=== PATIENT | male | born 1960 | race Caucasian/White ===

== ENCOUNTER 2021-11-11 13:21 | Inpatient (IN) | payer OTHER ==
[~2021-11-11] VITALS: Ht 180.3 cm; Wt 102.8 kg
[2021-11-11 15:12] LABS: Albumin 2.7 g/dL (3.4-5.0); Calcium 8.2 mg/dL (8.5-10.1); Magnesium 2.3 mg/dL (1.6-2.6); Potassium 4.1 mmol/L (3.5-5.1)
[2021-11-11 15:18] LABS: Urine Bacteria NONE SEEN /hpf (None Seen); Urine Blood 1+ /uL (Negative); Urine Hyaline Cast FEW /lpf (0 - 2); Urine Mucus FEW (None Seen); Urine WBC 1 /hpf (0 - 3)
[2021-11-11 15:18] LABS: BUN/Creatinine Ratio 12.4; Bilirubin, Total 0.9 mg/dL (0.2-1.0); Total Protein 7.2 g/dL (6.4-8.2)
[2021-11-11 15:20] LABS: Basophils # (auto) 0 10 ^3/uL (0-0.2); Basophils % (auto) 0.5 % (0.0-2.0); Eosinophils # (auto) 0.1 10 ^3/uL (0-0.8); Eosinophils % (auto) 1.1 % (0.0-7.0); Hematocrit 34.1 % (41.0-53.0); Hemoglobin 11.6 g/dL (13.5-17.5); Lymphocytes # (auto) 0.9 10 ^3/uL (0.4-5.4); Mean Corpuscular Hemoglobin 25.3 pg (28.0-32.0); Mean Corpuscular Hgb Conc. 33.9 g/dL (32.0-36.0); Mean Corpuscular Volume 74.6 fL (80.0-100.0); Monocytes # (auto) 0.9 10 ^3/uL (0-1.3); Monocytes % (auto) 9.8 % (0.0-12.0); Neutrophils # (auto) 7.3 10 ^3/uL (1.6-8.6); Neutrophils % (auto) 78.6 % (37.0-80.0); Red Blood Cells 4.57 10^6/uL (4.5-5.90); White Blood Cell 9.3 10^3/uL (4.4-10.8)
[2021-11-11] MEDS ORDERED: KETOROLAC TROMETH 30 MG/ML 1ML VIAL IV ONE (15:30)
[2021-11-11] MEDS ORDERED: LABETALOL HCL 5 MG/ML 4ML SYRINGE IV ONE (15:30)
[2021-11-11] MEDS ORDERED: METOCLOPRAMIDE HCL 5MG/ml INJ 2ml VIAL IV ONE (15:30)
[2021-11-11] MEDS ORDERED: ACETAMINOPHEN 325 MG TAB PO PRN (18:15)
[2021-11-11] MEDS ORDERED: MORPHINE SULFATE INJECTION 2 MG/ML SYRG IV PRN (18:15)
[2021-11-11] MEDS ORDERED: MORPHINE SULFATE 4 MG/ML SYR/VIAL IV PRN (18:15)
[2021-11-11] MEDS ORDERED: NITROGLYCERIN 0.4 MG SL TAB SL PRN (18:15)
[2021-11-11] MEDS ORDERED: HEPARIN DRIP/D5W 100UNITS/ML 250 ML IV SCH (19:15)
[2021-11-11] MEDS ORDERED: HEPARIN SODIUM (PORCINE) 5000 UNITS/ML 1ML VIAL IV ONE (19:15)
[2021-11-11 20:32] LABS: INR 1.3 (0.9-1.15); Partial Thromboplastin Time 25.3 sec (23.6-33.0)
[2021-11-11 21:26] VITALS: BP 127/55
[2021-11-11 21:30] VITALS: BP 127/55
[2021-11-11 23:23] LABS: INR 1.3 (0.9-1.15); Partial Thromboplastin Time 30.2 sec (23.6-33.0)
[2021-11-12] MEDS ORDERED: LISI-275 PO (00:24)
[2021-11-12] MEDS ORDERED: TICA90TA PO (00:24)
[2021-11-12] MEDS ORDERED: MET25T PO (00:24)
[2021-11-12 05:00] VITALS: BP 139/75
[2021-11-12 06:08] LABS: Basophils # (auto) 0 10 ^3/uL (0-0.2); Basophils % (auto) 0.6 % (0.0-2.0); Eosinophils # (auto) 0.1 10 ^3/uL (0-0.8); Hematocrit 29.8 % (41.0-53.0); Hemoglobin 10.1 g/dL (13.5-17.5); Lymphocytes # (auto) 0.9 10 ^3/uL (0.4-5.4); Monocytes # (auto) 0.8 10 ^3/uL (0-1.3); Neutrophils # (auto) 5.3 10 ^3/uL (1.6-8.6); White Blood Cell 7.1 10^3/uL (4.4-10.8)
[2021-11-12 06:10] LABS: Eosinophils % (auto) 1.5 % (0.0-7.0); Lymphocytes % (auto) 12.7 % (10.0-50.0); Mean Corpuscular Hemoglobin 25.4 pg (28.0-32.0); Mean Corpuscular Hgb Conc. 33.8 g/dL (32.0-36.0); Mean Corpuscular Volume 75.1 fL (80.0-100.0); Monocytes % (auto) 11.3 % (0.0-12.0); Neutrophils % (auto) 73.9 % (37.0-80.0); Red Blood Cells 3.97 10^6/uL (4.5-5.90); Red Cell Distribution Width 15.8 % (11.8-14.3)
[2021-11-12 06:35] LABS: Albumin 2.4 g/dL (3.4-5.0); Calcium 7.9 mg/dL (8.5-10.1)
[2021-11-12 06:38] LABS: Bilirubin, Total 0.5 mg/dL (0.2-1.0); Total Protein 6.3 g/dL (6.4-8.2)
[2021-11-12 08:54] VITALS: BP 140/72
[2021-11-12] MEDS ORDERED: ENOXAPARIN SOD 40 MG/0.4 ML SYRINGE SC SCH (10:00)
[2021-11-12 10:22] LABS: INR 1.26 (0.9-1.15); Partial Thromboplastin Time 33.6 sec (23.6-33.0)
[2021-11-12] MEDS ORDERED: HEPARIN SODIUM (PORCINE) 5000 UNITS/ML 1ML VIAL IV ONE (11:00)
[2021-11-12] MEDS ORDERED: HEPARIN DRIP/D5W 100UNITS/ML 250 ML IV SCH (11:00)
[2021-11-12] MEDS ORDERED: MANNITOL FTV 25% 12.5 GM/50 ML 50 ML IV ONE ×2 (12:00→12:30)
[2021-11-12 13:00] VITALS: BP 171/92
[2021-11-12] MEDS ORDERED: LABETALOL HCL 5 MG/ML 4ML SYRINGE IV PRN (13:15)
[2021-11-12] MEDS ORDERED: DEXTROSE (50%) 50ML SYRG IV PRN (13:15)
[2021-11-12] MEDS ORDERED: METOPROLOL TARTRATE 25 MG TAB PO ONE (14:00)
[2021-11-12] MEDS: SODIUM CHLORIDE 0.9% 1,000 ML IV SCH (14:28)
[2021-11-12 17:00] VITALS: BP 148/73
[2021-11-12] MEDS: ACCU-CHEK COMFORT CURVE STRIP VI SCH ×2 (17:00→22:31)
[2021-11-12] MEDS: InsuLIN REG 1unit/0.01ml Soln (100units/ml) SC SCH ×2 (17:49→22:31)
[2021-11-12] MEDS: TAMSULOSIN HYDROCHLORIDE 0.4 MG CAP PO SCH (17:49)
[2021-11-12 22:00] VITALS: BP 135/69
[2021-11-12] MEDS: ATORVASTATIN 20 MG TAB PO SCH (22:27)
[2021-11-12] MEDS: METOPROLOL TARTRATE 25 MG TAB PO SCH (22:28)
[2021-11-12] MEDS: TICAGRELOR 60 MG TAB PO SCH (22:33)
[2021-11-13] MEDS: SODIUM CHLORIDE 0.9% 1,000 ML IV SCH (03:08)
[2021-11-13 05:00] VITALS: BP 149/84
[2021-11-13] MEDS: InsuLIN REG 1unit/0.01ml Soln (100units/ml) SC SCH ×4 (07:00→22:14)
[2021-11-13 07:03] LABS: Basophils # (auto) 0 10 ^3/uL (0-0.2); Eosinophils # (auto) 0.1 10 ^3/uL (0-0.8); Monocytes # (auto) 0.8 10 ^3/uL (0-1.3); Neutrophils # (auto) 5.3 10 ^3/uL (1.6-8.6); Red Cell Distribution Width 16.2 % (11.8-14.3); White Blood Cell 7.3 10^3/uL (4.4-10.8)
[2021-11-13] MEDS: ACCU-CHEK COMFORT CURVE STRIP VI SCH ×4 (07:04→22:17)
[2021-11-13 07:06] LABS: Basophils % (auto) 0.5 % (0.0-2.0); Eosinophils % (auto) 1.8 % (0.0-7.0); Hematocrit 29.9 % (41.0-53.0); Lymphocytes # (auto) 1.1 10 ^3/uL (0.4-5.4); Lymphocytes % (auto) 14.3 % (10.0-50.0); Mean Corpuscular Hemoglobin 25.1 pg (28.0-32.0); Mean Corpuscular Hgb Conc. 33.4 g/dL (32.0-36.0); Mean Corpuscular Volume 75.4 fL (80.0-100.0); Monocytes % (auto) 10.6 % (0.0-12.0); Neutrophils % (auto) 72.8 % (37.0-80.0); Nucleated Red Blood Cells % 0.1 %; Red Blood Cells 3.97 10^6/uL (4.5-5.90)
[2021-11-13 07:09] LABS: Calcium 8.3 mg/dL (8.5-10.1); Potassium 4.3 mmol/L (3.5-5.1)
[2021-11-13 07:11] LABS: BUN/Creatinine Ratio 11.1
[2021-11-13 09:00] VITALS: BP 145/78
[2021-11-13] MEDS: ASPirin 81 mg TAB PO SCH (10:24)
[2021-11-13] MEDS: TICAGRELOR 60 MG TAB PO SCH ×2 (10:27→22:12)
[2021-11-13] MEDS: METOPROLOL TARTRATE 25 MG TAB PO SCH ×2 (10:27→22:15)
[2021-11-13 13:00] VITALS: BP 147/75
[2021-11-13 15:52] LABS: Urine Bacteria FEW /hpf (None Seen); Urine Blood 1+ /uL (Negative); Urine Hyaline Cast FEW /lpf (0 - 2); Urine Mucus FEW (None Seen); Urine Specific Gravity 1.026 (1.001-1.035); Urine WBC 22 /hpf (0 - 3)
[2021-11-13 17:00] VITALS: BP 153/77
[2021-11-13] MEDS: TAMSULOSIN HYDROCHLORIDE 0.4 MG CAP PO SCH (17:19)
[2021-11-13] MEDS: HYDROcodone-ACET 5/325MG TAB PO PRN (21:29)
[2021-11-13 22:00] VITALS: BP 146/68
[2021-11-13] MEDS: ATORVASTATIN 20 MG TAB PO SCH (22:12)
[2021-11-14] MEDS: HYDROcodone-ACET 5/325MG TAB PO PRN ×2 (03:16→10:08)
[2021-11-14 05:00] VITALS: BP 129/64
[2021-11-14] MEDS: InsuLIN REG 1unit/0.01ml Soln (100units/ml) SC SCH ×4 (06:32→22:46)
[2021-11-14] MEDS: ACCU-CHEK COMFORT CURVE STRIP VI SCH ×4 (06:33→22:47)
[2021-11-14 08:37] LABS: Calcium 8.5 mg/dL (8.5-10.1); Potassium 4.1 mmol/L (3.5-5.1)
[2021-11-14 08:41] LABS: BUN/Creatinine Ratio 14.3
[2021-11-14 09:00] VITALS: BP 160/76
[2021-11-14] MEDS: ASPirin 81 mg TAB PO SCH (10:08)
[2021-11-14] MEDS: TICAGRELOR 60 MG TAB PO SCH ×2 (10:09→22:43)
[2021-11-14] MEDS: METOPROLOL TARTRATE 25 MG TAB PO SCH ×2 (10:09→22:44)
[2021-11-14] MEDS ORDERED: amLODIPine BESYLATE 5 MG TAB PO ONE (12:45)
[2021-11-14] MEDS ORDERED: cloNIDine HCL 0.1 MG TAB PO PRN (12:45)
[2021-11-14 13:00] VITALS: BP 146/86
[2021-11-14] MEDS: SODIUM CHLORIDE 0.9% 1,000 ML IV SCH (16:15)
[2021-11-14 17:00] VITALS: BP 157/80
[2021-11-14] MEDS ORDERED: hydrALAZINE HCL 25 MG TAB PO PRN (17:15)
[2021-11-14] MEDS: TAMSULOSIN HYDROCHLORIDE 0.4 MG CAP PO SCH (19:00)
[2021-11-14 22:00] VITALS: BP_SYST 144; BP_SYST 153; BP_DIAS 64; BP_DIAS 78
[2021-11-14] MEDS: ATORVASTATIN 20 MG TAB PO SCH (22:44)
[2021-11-15 05:00] VITALS: BP 145/71
[2021-11-15] MEDS: SODIUM CHLORIDE 0.9% 1,000 ML IV SCH ×2 (05:57→16:00)
[2021-11-15 06:13] LABS: Potassium 4.1 mmol/L (3.5-5.1)
[2021-11-15 06:19] LABS: Albumin 2.5 g/dL (3.4-5.0); BUN/Creatinine Ratio 14.9; Calcium 8.1 mg/dL (8.5-10.1); Total Protein 6.5 g/dL (6.4-8.2)
[2021-11-15 06:20] LABS: Basophils # (auto) 0 10 ^3/uL (0-0.2); Eosinophils # (auto) 0.2 10 ^3/uL (0-0.8); Hemoglobin 9.3 g/dL (13.5-17.5); Monocytes # (auto) 0.6 10 ^3/uL (0-1.3); Neutrophils # (auto) 4.6 10 ^3/uL (1.6-8.6)
[2021-11-15 06:23] LABS: Basophils % (auto) 0.5 % (0.0-2.0); Eosinophils % (auto) 3.4 % (0.0-7.0); Hematocrit 27.2 % (41.0-53.0); Lymphocytes % (auto) 15.7 % (10.0-50.0); Mean Corpuscular Hemoglobin 25.7 pg (28.0-32.0); Mean Corpuscular Hgb Conc. 34.1 g/dL (32.0-36.0); Mean Corpuscular Volume 75.3 fL (80.0-100.0); Monocytes % (auto) 9.3 % (0.0-12.0); Neutrophils % (auto) 71.1 % (37.0-80.0); Red Blood Cells 3.61 10^6/uL (4.5-5.90); White Blood Cell 6.4 10^3/uL (4.4-10.8)
[2021-11-15] MEDS: InsuLIN REG 1unit/0.01ml Soln (100units/ml) SC SCH ×4 (06:33→21:55)
[2021-11-15] MEDS: ACCU-CHEK COMFORT CURVE STRIP VI SCH ×4 (06:34→21:56)
[2021-11-15 09:00] VITALS: BP 141/60
[2021-11-15] MEDS ORDERED: amLODIPine BESYLATE 5 MG TAB PO SCH (10:00)
[2021-11-15] MEDS: TICAGRELOR 60 MG TAB PO SCH ×2 (10:09→21:51)
[2021-11-15] MEDS: ASPirin 81 mg TAB PO SCH (10:09)
[2021-11-15] MEDS: METOPROLOL TARTRATE 25 MG TAB PO SCH ×2 (10:10→21:52)
[2021-11-15 12:41] VITALS: BP 127/80
[2021-11-15 17:00] VITALS: BP 143/72
[2021-11-15] MEDS: TAMSULOSIN HYDROCHLORIDE 0.4 MG CAP PO SCH (18:06)
[2021-11-15 21:42] VITALS: BP 131/63
[2021-11-15] MEDS: ATORVASTATIN 20 MG TAB PO SCH (21:51)
[2021-11-16 04:41] VITALS: BP 122/69
[2021-11-16] MEDS: SODIUM CHLORIDE 0.9% 1,000 ML IV SCH ×2 (04:46→18:35)
[2021-11-16 06:08] LABS: Basophils # (auto) 0.1 10 ^3/uL (0-0.2); Eosinophils # (auto) 0.2 10 ^3/uL (0-0.8); Hematocrit 27.9 % (41.0-53.0); Monocytes # (auto) 0.6 10 ^3/uL (0-1.3); White Blood Cell 6.4 10^3/uL (4.4-10.8)
[2021-11-16 06:11] LABS: Basophils % (auto) 0.9 % (0.0-2.0); Eosinophils % (auto) 2.8 % (0.0-7.0); Hemoglobin 9.6 g/dL (13.5-17.5); Lymphocytes # (auto) 0.9 10 ^3/uL (0.4-5.4); Lymphocytes % (auto) 14.8 % (10.0-50.0); Mean Corpuscular Hemoglobin 25.5 pg (28.0-32.0); Mean Corpuscular Hgb Conc. 34.3 g/dL (32.0-36.0); Monocytes % (auto) 9.1 % (0.0-12.0); Neutrophils # (auto) 4.6 10 ^3/uL (1.6-8.6); Neutrophils % (auto) 72.4 % (37.0-80.0); Red Blood Cells 3.75 10^6/uL (4.5-5.90)
[2021-11-16 06:23] LABS: INR 1.36 (0.9-1.15)
[2021-11-16] MEDS: InsuLIN REG 1unit/0.01ml Soln (100units/ml) SC SCH ×3 (06:24→17:00)
[2021-11-16] MEDS: ACCU-CHEK COMFORT CURVE STRIP VI SCH ×3 (06:24→17:00)
[2021-11-16 06:35] LABS: Calcium 8.2 mg/dL (8.5-10.1); Potassium 4.2 mmol/L (3.5-5.1)
[2021-11-16 06:39] LABS: Albumin 2.5 g/dL (3.4-5.0); BUN/Creatinine Ratio 16.4
[2021-11-16 06:41] LABS: Bilirubin, Total 0.9 mg/dL (0.2-1.0); Total Protein 6.6 g/dL (6.4-8.2)
[2021-11-16 06:46] LABS: Mean Corpuscular Volume 74.4 fL (80.0-100.0)
[2021-11-16 09:00] VITALS: BP_SYST 125; BP_SYST 157; BP_DIAS 68; BP_DIAS 86
[2021-11-16] MEDS ORDERED: IODIXANOL 320MG/ML 100ML BTL IV ONE (09:18)
[2021-11-16] MEDS ORDERED: LIDOCAINE 2%HCL (LOCAL ANESTH.) INJ 20ML MDV ONE (09:18)
[2021-11-16] MEDS ORDERED: fentaNYL CITRATE 100 MCG/2 ML VL ONE (09:43)
[2021-11-16] MEDS ORDERED: HEPARIN SODIUM (PORCINE) 5000 UNITS/ML 1ML VIAL ONE (09:43)
[2021-11-16] MEDS ORDERED: ANGIOMAX 250 MG VIAL IV ONE (09:43)
[2021-11-16] MEDS ORDERED: VERAPAMIL 2.5MG/ML INJ 2ML VIAL IV ONE (09:43)
[2021-11-16] MEDS ORDERED: SODIUM CHL 0.9% 0 ML ONE (09:44)
[2021-11-16] MEDS ORDERED: MIDAZOLAM HCL 2MG/2ML 2ml VIAL (1mg/ml) ONE (09:44)
[2021-11-16] MEDS ORDERED: ASPI-543 PO (12:18)
[2021-11-16] MEDS ORDERED: MET25T PO (12:18)
[2021-11-16] MEDS ORDERED: LISI-275 PO (12:18)
[2021-11-16] MEDS ORDERED: ATOR-47 PO (12:18)
[2021-11-16 13:00] VITALS: BP 150/81
[2021-11-16] MEDS: METOPROLOL TARTRATE 25 MG TAB PO SCH (13:01)
[2021-11-16] MEDS: TICAGRELOR 60 MG TAB PO SCH (13:01)
[2021-11-16] MEDS: ASPirin 81 mg TAB PO SCH (13:01)
[2021-11-16 17:00] VITALS: BP 150/99
[2021-11-16] MEDS: TAMSULOSIN HYDROCHLORIDE 0.4 MG CAP PO SCH (17:39)
== END 2021-11-16 21:32 | disposition short-term general hospital (02) | DRG 280 ==
LOC: ER 13:21 → EDBD 13:21 → TELE 18:05 → TELE-WESTW 21:27
PROVIDERS: ADMIT Internal Medicine; ATTEND Internal Medicine
PROC: 4A023N7 Measurement of Cardiac Sampling and Pressure, Left Heart, Percutaneous Approach (ICD-10-PCS; principal; 2021-11-16)
PROC: B211YZZ Fluoroscopy of Multiple Coronary Arteries using Other Contrast (ICD-10-PCS; 2021-11-16)
DX: I21.4 Non-ST elevation (NSTEMI) myocardial infarction (principal); N17.0 Acute kidney failure with tubular necrosis; N13.2 Hydronephrosis with renal and ureteral calculous obstruction; E44.0 Moderate protein-calorie malnutrition; I50.20 Unspecified systolic (congestive) heart failure; I13.0 Hypertensive heart and chronic kidney disease with heart failure and stage 1 through stage 4 chronic kidney disease, or unspecified chronic kidney disease; E11.21 Type 2 diabetes mellitus with diabetic nephropathy; Z20.822 Contact with and (suspected) exposure to COVID-19; K44.9 Diaphragmatic hernia without obstruction or gangrene; I25.10 Atherosclerotic heart disease of native coronary artery without angina pectoris; D64.9 Anemia, unspecified; E11.319 Type 2 diabetes mellitus with unspecified diabetic retinopathy without macular edema; E66.9 Obesity, unspecified; K80.20 Calculus of gallbladder without cholecystitis without obstruction; N18.9 Chronic kidney disease, unspecified; E11.22 Type 2 diabetes mellitus with diabetic chronic kidney disease; Z68.31 Body mass index [BMI] 31.0-31.9, adult; I25.2 Old myocardial infarction; Z83.3 Family history of diabetes mellitus; Z84.1 Family history of disorders of kidney and ureter; Z87.442 Personal history of urinary calculi; Z95.1 Presence of aortocoronary bypass graft; Z95.5 Presence of coronary angioplasty implant and graft
CPT/HCPCS: 36415; 71045; 74176; 76775; 80048; 80053; 81001; 82043; 82570; 82962; 83036; 83735; 84156; 84300; 84484; 85025; 85610; 85730; 87426; 93005; 93306; 96374; 96375; 99152; G0378; J1815; J1885; J2250; Q9967

== ENCOUNTER 2025-06-21 12:57 | Inpatient (IN) | payer OTHER ==
[2025-06-21] VITALS (7 sets, daily range): BP systolic 158–161; BP diastolic 71–88; PULSE 65–75; RESP 18–20; TEMP 97.4; O2SAT 94–97
[~2025-06-21] VITALS: Ht 175.3 cm; Wt 112.0 kg
[~2025-06-21 12:57] MED LIST: ASPI-543 PO; ATOR-47 PO; LISI-275 PO; MET25T PO; TICA90TA PO
--- NOTE | 2025-06-21 13:22 | ECG ---
[facility] Test Date: 2025-06-21 Test Time: 13:16:33 Pat Name: AUDRA CARNEY Department: ED Room: Gender: M Assessment Rn: luis alberto : 1960 Requested By: EMERGENCY EMERGENCY Order Number: [id number] Reading MD: Measurements Intervals [place] Rate: 73 P: 68 GA: 211 QRS: 25 QRSD: 94 T: 96 QT: 402 QTc: 443 Interpretive Statements Sinus rhythm Anteroseptal infarct, old Nonspecific T abnormalities, lateral leads Please click the below link to view image of tracing.
--- NOTE | 2025-06-21 13:53 | ED.PDOC ---
SOB-HPI HPI Comments 64 y.o male presents to the ED for a chief complaint of SOB that started 2-3 days ago spontaneously with no previous hx of respiratory issues or oxygen use at home. Patient presented to the ED with a SPO2 in the mid 80's RA and was placed on 4 liters of oxygen via NC with saturation improvement (93-94%). Patient has history of 4 PTCA, is on ASA, HTN, DM and use to be on dialysis but has stopped given improvement of kidney function. He denies any chest pain, fever, chills, nausea, vomiting, leg swelling. Chief Complaint: Shortness of Breath Time Seen by MD: 13:21 Reviewed notes: Nurses Notes, Medications, Allergies Information Source: Patient Mode of Arrival: Ambulatory Severity: Moderate Timing: Days (2-3) Duration: Since onset Context: At Rest PE Risk Factors: None History of: None Modifying Factors: Nothing Associated Signs and Symptoms: None Past Medical History PAST MEDICAL HISTORY: CAD, CKF, DM, HTN, Kidney Stones Surgical History: CABG, PTCA Family History Family History: Unknown Social History Smoker: Non-Smoker Alcohol: Denies ETOH Use Drugs: Denies Drug Use Lives In: Home Constitutional: denies: chills, diaphoresis, fatigue, fever, malaise, sweats, weakness, others EENTM: denies: blurred vision, double vision, ear bleeding, ear discharge, ear drainage, ear pain, ear ringing, eye pain, eye redness, hearing loss, mouth pain, mouth swelling, nasal discharge, nose bleeding, nose congestion, nose pain, photophobia, tearing, throat pain, throat swelling, voice changes, others Respiratory: reports: SOB at rest, shortness of breath, SOB with excertion; denies: cough, hemoptysis, orthopnea, stridor, wheezing, others Cardiovascular: denies: chest pain, dizzy spells, diaphoresis, Dyspnea on exertion, edema, irregular heart beat, left arm pain, lightheadedness, palpitations, PND, syncope, others Gastrointestinal: denies: abdomen distended, abdominal pain, blood streaked bowels, constipated, diarrhea, dysphagia, difficulty swallowing, hematemesis, melena, nausea, poor appetite, poor fluid intake, rectal bleeding, rectal pain, vomiting, others Genitourinary: denies: burning, dysuria, flank pain, frequency, hematuria, incontinence, penile discharge, penile sore, pain, testicle pain, testicle swelling, urgency, others Neurological: denies: dizziness, fainting, headache, left sided numbness, left sided weakness, numbness, paresthesia, pre-existing deficit, right sided numbness, right sided weakness, seizure, speech problems, tingling, tremors, weakness, others Musculoskeletal: denies: back pain, gout, joint pain, joint swelling, muscle pain, muscle stiffness, neck pain, others Integumetry: denies: bruises, change in color, change in hair/nails, dryness, laceration, lesions, lumps, rash, wounds, others Allergic/Immunocompromised: denies: Difficulty Healing, Frequent Infections, Hives, Itching, others Hematologic/Lymphatic: denies: anemia, blood clots, easy bleeding, easy bruising, swollen glands, others Endocrine: denies: excessive hunger, excessive sweating, excessive thirst, excessive urination, flushing, intolerance to cold, intolerance to heat, unexplained weight gain, unexplained weight loss, others Psychiatric: denies: anxiety, bipolar disorder, depression, hopeless, panic disorder, schizophrenia, sleepless, suicidal, others All Other Systems: Reviewed and Negative Physical Exam General Appearance: Moderate Distress HEENT: Normal ENT Inspection, Pharynx Normal, TMs Normal Neck: Full Range of Motion, Non-Tender, Normal, Normal Inspection Respiratory: Other (Coarse breath sounds) Cardiovascular: No Edema, No JVD, No Murmur, No Gallop, Normal Peripheral Pulses, Regular Rate/Rhythm Breast Exam: Deferred Gastrointestinal: No Organomegaly, Non Tender, No Pulsatile Mass, Normal Bowel Sounds, Soft Genitalia: Deferred Pelvic: Deferred Rectal: Deferred Extremities: No calf tenderness, Normal capillary refill, Normal inspection, Normal range of motion, Non-tender, No pedal edema Musculoskeletal : Apperance: Normal Neurologic: Alert, client delivery specialist II-XII nml as Tested, No Motor Deficits, Normal Affect, Normal Mood, No Sensory Deficits Cerebellar Function: NOT DONE Reflexes: NOT DONE Skin: Dry, Normal Color, Warm Peripheral Pulses: 3+ Radial (R), 3+ Radial (L) Lymphatic: No Adenopathy EKG EKG : Pulse Rate (adult): 73 Cardiac Rhythm: NSR Was a procedure done? Was a procedure done?: No Differential Dx Differential Diagnosis: Anxiety, Asthma, Bronchitis, CHF, COPD, Pneumonia, Pneumothorax, Respiratory Distress, URI X-Ray, Labs, Meds, VS Vital Signs Date Time Temp Pulse Resp B/P (MAP) Pulse Ox O2 Delivery O2 Flow Rate FiO2 06/21/25 16:00 73 20 149/78 (101) 94 06/21/25 15:00 68 22 145/72 (96) 94 06/21/25 14:00 98.6 71 21 146/76 (99) 94 98.6 06/21/25 13:53 73 06/21/25 13:40 97 Nasal Cannula* 3 32 06/21/25 13:40 97 Nasal Cannula* 3 32 06/21/25 13:16 73 06/21/25 13:10 75 20 94 Nasal Cannula* 4 36 06/21/25 13:10 75 20 162/79 (106) 93 06/21/25 12:58 97.7 87 20 143/81 82 97.7 Lab Test 06/21/25 15:35 06/21/25 14:37 Range/Units Troponin I High Sensitivity 95 *H 96 *H </=54 ng/L White Blood Count 7.2 4.4-10.8 10^3/uL Red Blood Count 3.43 L 4.5-5.90 10^6/uL Hemoglobin 9.1 L 13.5-17.5 g/dL Hematocrit 27.7 L 41.0-53.0 % Mean Corpuscular Volume 80.7 80.0-100.0 fL Mean Corpuscular Hemoglobin 26.5 L 28.0-32.0 pg Mean Corpuscular Hemoglobin Concent 32.8 32.0-36.0 g/dL Red Cell Distribution Width 15.4 H 11.8-14.3 % Platelet Count 205 140-450 10^3/uL Mean Platelet Volume 8.6 6.9-10.8 fL Neutrophils (%) (Auto) 78.2 37.0-80.0 % Lymphocytes (%) (Auto) 11.3 10.0-50.0 % Monocytes (%) (Auto) 7.4 0.0-12.0 % Eosinophils (%) (Auto) 2.1 0.0-7.0 % Basophils (%) (Auto) 1.0 0.0-2.0 % Neutrophils # (Auto) 5.6 1.6-8.6 10 ^3/uL Lymphocytes # (Auto) 0.8 0.4-5.4 10 ^3/uL Monocytes # (Auto) 0.5 0-1.3 10 ^3/uL Eosinophils # (Auto) 0.2 0-0.8 10 ^3/uL Basophils # (Auto) 0.1 0-0.2 10 ^3/uL Nucleated Red Blood Cells 0.0 % Sodium Level 143 136-145 mmol/L Potassium Level 5.1 3.5-5.1 mmol/L Chloride Level 113 H 98-107 mmol/L Carbon Dioxide Level 21 20-31 mmol/L Anion Gap 9 5-15 Blood Urea Nitrogen 43 H 9-23 mg/dL Creatinine 3.07 H 0.700-1.30 mg/dL Glomerular Filtration Rate Calc 22 >90 mL/min BUN/Creatinine Ratio 14.0 10.0-20.0 Serum Glucose 82 74-106 mg/dL Calcium Level 8.4 L 8.7-10.4 mg/dL B-Type Natriuretic Peptide 648.49 0-100 pg/mL Patient alert. Answering questions. Came in because of shortness a breath. Placed on oxygen. Possible CHF. History of coronary artery disease. WBC within normal limits. Cardiac marker elevated. Demand ischemia. Was given Lasix. Was given aspirin. Explained to the patient. Continue monitoring. Time of 1ST Reevaluation: 13:49 Reevaluation 1ST: Unchanged Patient Education/Counseling: Diagnosis, Treatment, Prognosis Family Education/Counseling: No Family Present SEPSIS Sepsis Screen Date sepsis recognized/suspect: Jun 21, 2025 Time Sepsis recognized/suspect: 1258 Recent Procedure: No On Antibiotic Therapy: No Respiratory Rate >20: No Heart Rate >90: No Temp<36 C (96.8 F) or >38.3 C: No SBP <90 or MAP <65 mmHG: No New Acute Mental Status Change: No Is the patient on CPAP, BIPAP,: No Physician Orders Chest Portable (06/21/25 14:22) Urinalysis (06/21/25 14:22) Troponin-I Hs (06/21/25 17:22) Enoxaparin Sodium (Lovenox) (06/21/25 17:30) Vital Signs Date Time Temp Pulse Resp B/P (MAP) Pulse Ox O2 Delivery O2 Flow Rate FiO2 06/21/25 16:00 73 20 149/78 (101) 94 06/21/25 15:00 68 22 145/72 (96) 94 06/21/25 14:00 98.6 71 21 146/76 (99) 94 98.6 06/21/25 13:53 73 06/21/25 13:40 97 Nasal Cannula* 3 32 06/21/25 13:40 97 Nasal Cannula* 3 32 06/21/25 13:16 73 06/21/25 13:10 75 20 94 Nasal Cannula* 4 36 06/21/25 13:10 75 20 162/79 (106) 93 06/21/25 12:58 97.7 87 20 143/81 82 97.7 Laboratory Tests Test 06/21/25 14:37 White Blood Count 7.2 10^3/uL (4.4-10.8) Departure 1 Departure Time of Disposition: 17:10 Impression: Primary Impression: CHF (congestive heart failure) Qualified Codes: I50.43 - Acute on chronic combined systolic (congestive) and diastolic (congestive) heart failure Additional Impressions: Demand ischemia Uncontrolled diabetes mellitus Qualified Codes: E13.65 - Other specified diabetes mellitus with hyperglycemia Disposition: ADMITTED INPATIENT Admit to: Med Surg Condition: Guarded Critical Care Note Critical Care Time?: Yes Stability Stability form required: No Heart Score Heart Score: Heart Score Response (Comments) Value History Slightly Suspicious 0 EKG Normal 0 Age >65 2 Risk Factors >3 or Hx ASHD 2 Troponin >3 x's Normal limit 2 Total 6 I personally scribed for GUILLERMINA CHAO MD ([email or web address]) on 06/21/25 at 13:53. Electronically submitted by Sheila Goncalves ([facility]). GUILLERMINA CHAO MD Jun 21, 2025 13:53
--- NOTE | 2025-06-21 14:59 | DVH ---
CHEST RADIOGRAPH Indication: sob Technique: Single frontal view of the chest was obtained COMPARISON: CHEST PORTABLE on DOS: 11/11/21 FINDINGS: Lines and Tubes: None Lungs: Congestion Pleura: No effusion. No pneumothorax. Cardiomediastinal contours: Unremarkable Bones: Unremarkable IMPRESSION: Increased interstital prominence. This may represent pulmonary vascular congestion and/or viral pneum onia. Clinical correlation advised.
[2025-06-21 15:17] LABS: Hematocrit 27.7 % (41.0-53.0); Hemoglobin 9.1 g/dL (13.5-17.5); Mean Corpuscular Hemoglobin 26.5 pg (28.0-32.0); Mean Corpuscular Volume 80.7 fL (80.0-100.0); Nucleated Red Blood Cells % 0.0 %
[2025-06-21 15:26] LABS: Potassium 5.1 mmol/L (3.5-5.1); Sodium 143 mmol/L (136-145)
[2025-06-21 15:27] LABS: Anion Gap 9 (5-15); Carbon Dioxide 21 mmol/L (20-31)
[2025-06-21 15:30] LABS: Calcium 8.4 mg/dL (8.7-10.4); Chloride 113 mmol/L (98-107)
[2025-06-21 15:32] LABS: BUN/Creatinine Ratio 14.0 (10.0-20.0); Blood Urea Nitrogen 43 mg/dL (9-23); Glucose 82 mg/dL (74-106)
[2025-06-21 17:59] LABS: Urine Protein, UAD 2+ (Negative)
[2025-06-21] MEDS: ENOXAPARIN SOD 100 MG/1 ML SYRINGE SC ONE (18:10)
[2025-06-21] MEDS ORDERED: ACETAMINOPHEN 325 MG TAB PO PRN (18:45)
[2025-06-21] MEDS ORDERED: MORPHINE SULFATE INJ 2 MG/ml SYRG IV PRN (18:45)
[2025-06-21] MEDS ORDERED: NITROGLYCERIN 0.4 MG SL TAB SL PRN (18:45)
[2025-06-21] MEDS ORDERED: DEXTROSE (50%) 50ML SYRG IV PRN (18:45)
[2025-06-21] MEDS ORDERED: ONDANSETRON HCL 4 MG/2 ML VIAL IV PRN (18:45)
[2025-06-21] MEDS: FUROSEMIDE 40 MG/4 ML VIAL IV ONE (18:45)
[2025-06-21] MEDS: ALBUTEROL SULF 2.5 MG/0.5ML(0.5%) NEB SOLN NEB PRN (19:12)
[2025-06-21] MEDS: InsuLIN REG 1unit/0.01ml Soln (100units/ml) SC SCH (22:00)
[2025-06-21] MEDS: ACCU-CHEK COMFORT CURVE STRIP VI SCH (22:15)
[2025-06-21] MEDS: TICAGRELOR 90 MG TAB PO SCH (23:23)
[2025-06-21] MEDS: CARVEDILOL 3.125 MG TAB PO SCH (23:24)
[2025-06-21] MEDS: ATORVASTATIN 20 MG TAB PO SCH (23:24)
[2025-06-22 00:41] VITALS: BP 160/86; PULSE 71; RESP 16; TEMP 97.3; O2SAT 98
--- NOTE | 2025-06-22 04:21 | DVHHP2 ---
History of Present Illness Reason for Visit: Shortness for breath History of Present Illness 64-year-old male presents for evaluation of shortness for breath. Patient endorses a two day history of worsening shortness for breath with associated chest tightness. Denies cough or fever. No other acute complaints reported. Past Medical History Diabetes mellitus, hypertension, chronic kidney disease, CAD Past Surgical History CABG, PTCA Family History Noncontributory Smoke: No ALCOHOL: none Drugs: None Lives: with Family Review of Systems Review of Systems Review of systems are currently negative otherwise addressed in HPI. Allergies: Coded Allergies: NO KNOWN ALLERGIES (Unverified , 11/11/21) Medications Current Medications Medications Dose Ordered Sig/Bibiana Route Start Time Stop Time Status Last Admin Dose Admin Furosemide 40 mg DAILY IV 06/22/25 10:00 Albuterol 2.5 mg Q6HPRN PRN NEB 06/21/25 18:45 06/21/25 19:12 2.5 MG Aspirin 162 mg DAILY PO 06/22/25 10:00 Atorvastatin Calcium 80 mg HS PO 06/21/25 22:00 06/21/25 23:24 80 MG Ticagrelor 90 mg BID PO 06/21/25 22:00 06/21/25 23:23 90 MG Carvedilol 6.25 mg Q12HR PO 06/21/25 22:00 06/21/25 23:24 6.25 MG Diagnostic Test (Pha) 1 strip ACHS 06/21/25 22:00 06/21/25 22:15 1 STRIP Insulin Human Regular ACHS SC 06/21/25 22:00 Dextrose 50 ml UD PRN IV 06/21/25 18:45 Ondansetron HCl 4 mg Q4HP PRN IV 06/21/25 18:45 Acetaminophen 650 mg Q6HP PRN PO 06/21/25 18:45 Nitroglycerin 0.4 mg Q5MINP PRN SL 06/21/25 18:45 Morphine Sulfate 2 mg Q30M PRN IV 06/21/25 18:45 Exam Vital Signs Vital Signs Date Time Temp Pulse Resp B/P (MAP) Pulse Ox O2 Delivery O2 Flow Rate FiO2 06/22/25 00:41 97.3 71 16 160/86 (110) 98 97.3 06/21/25 20:14 Nasal Cannula* 4 36 Exam Gen: 64-year-old male in mild distress Skin: Warm, dry, normal color and texture, no rash. HEENT: Normocephalic atraumatic, mucous membranes moist and pink. Neck: Cervical and supraclavicular nodes normal without enlargement, trachea is midline, thyroid gland is normal without masses. Pulmonary: Diminished breath sounds bilaterally Cardiac: Regular rate and rhythm. No murmur Abdomen: Soft, nontender, nondistended, bowel sounds present all 4 quadrants, no guarding, no rigidity, no organomegaly. Extremities: No cyanosis, clubbing, no edema Neuro: Cranial nerves II through XII grossly intact, normal affect and speech, no focal motor deficits. Labs/Xrays ORDERING PHYSICIAN: GUILLERMINA CHAO MD PROCEDURE(s): CXRP - CHEST PORTABLE REASON: sob ORDER NUMBER(s): [id number], ACCESSION NUMBER(s): [id number] CHEST RADIOGRAPH Indication: sob Technique: Single frontal view of the chest was obtained COMPARISON: CHEST PORTABLE on DOS: 11/11/21 FINDINGS: Lines and Tubes: None Lungs: Congestion Pleura: No effusion. No pneumothorax. Cardiomediastinal contours: Unremarkable Bones: Unremarkable IMPRESSION: Increased interstital prominence. This may represent pulmonary vascular congestion and/or viral pneumonia. Clinical correlation advised. Labs Test 06/21/25 22:14 06/21/25 17:54 06/21/25 14:37 06/21/25 00:00 Range/Units POC Glucose 97 70-106 mg/dl Troponin I High Sensitivity 99 *H </=54 ng/L White Blood Count 7.2 4.4-10.8 10^3/uL Red Blood Count 3.43 L 4.5-5.90 10^6/uL Hemoglobin 9.1 L 13.5-17.5 g/dL Hematocrit 27.7 L 41.0-53.0 % Mean Corpuscular Volume 80.7 80.0-100.0 fL Mean Corpuscular Hemoglobin 26.5 L 28.0-32.0 pg Mean Corpuscular Hemoglobin Concent 32.8 32.0-36.0 g/dL Red Cell Distribution Width 15.4 H 11.8-14.3 % Platelet Count 205 140-450 10^3/uL Mean Platelet Volume 8.6 6.9-10.8 fL Neutrophils (%) (Auto) 78.2 37.0-80.0 % Lymphocytes (%) (Auto) 11.3 10.0-50.0 % Monocytes (%) (Auto) 7.4 0.0-12.0 % Eosinophils (%) (Auto) 2.1 0.0-7.0 % Basophils (%) (Auto) 1.0 0.0-2.0 % Neutrophils # (Auto) 5.6 1.6-8.6 10 ^3/uL Lymphocytes # (Auto) 0.8 0.4-5.4 10 ^3/uL Monocytes # (Auto) 0.5 0-1.3 10 ^3/uL Eosinophils # (Auto) 0.2 0-0.8 10 ^3/uL Basophils # (Auto) 0.1 0-0.2 10 ^3/uL Nucleated Red Blood Cells 0.0 % Sodium Level 143 136-145 mmol/L Potassium Level 5.1 3.5-5.1 mmol/L Chloride Level 113 H 98-107 mmol/L Carbon Dioxide Level 21 20-31 mmol/L Anion Gap 9 5-15 Blood Urea Nitrogen 43 H 9-23 mg/dL Creatinine 3.07 H 0.700-1.30 mg/dL Glomerular Filtration Rate Calc 22 >90 mL/min BUN/Creatinine Ratio 14.0 10.0-20.0 Serum Glucose 82 74-106 mg/dL Calcium Level 8.4 L 8.7-10.4 mg/dL B-Type Natriuretic Peptide 648.49 0-100 pg/mL Urine Color Light-yellow Yellow Urine Clarity Clear Clear Urine pH 6.0 5.0-9.0 Urine Specific Hoffman 1.016 1.001-1.035 Urine Protein 2+ H Negative Urine Ketones Negative Negative Urine Blood 1+ H Negative /uL Urine Nitrite Negative Negative Urine Bilirubin Negative Negative Urine Urobilinogen Normal Negative mg/dL Urine Leukocyte Esterase Negative Negative /uL Urine RBC 2 0 - 3 /hpf Urine Microscopic WBC 1 0-3 /HPF Urine Squamous Epithelial Cells Few <5 /hpf Urine Bacteria None seen None Seen /hpf Urine Glucose 1+ H Normal mg/dL SEPSIS Sepsis Screen Date sepsis recognized/suspect: Jun 21, 2025 Time Sepsis recognized/suspect: 2017 Recent Procedure: No On Antibiotic Therapy: No Respiratory Rate >20: No Heart Rate >90: No Temp<36 C (96.8 F) or >38.3 C: No SBP <90 or MAP <65 mmHG: No New Acute Mental Status Change: No Is the patient on CPAP, BIPAP,: No Physician Orders Communication Order (06/22/25 04:16) Vital Signs Date Time Temp Pulse Resp B/P (MAP) Pulse Ox O2 Delivery O2 Flow Rate FiO2 06/22/25 00:41 97.3 71 16 160/86 (110) 98 97.3 06/21/25 23:24 72 158/88 06/21/25 23:05 97.4 72 18 158/88 (111) 94 97.4 Medications Medications Dose Ordered Sig/Bibiana Route Start Time Stop Time Status Last Admin Dose Admin Albuterol 2.5 mg Q6HPRN PRN NEB 06/21/25 18:45 06/21/25 19:12 2.5 MG Atorvastatin Calcium 80 mg HS PO 06/21/25 22:00 06/21/25 23:24 80 MG Carvedilol 6.25 mg Q12HR PO 06/21/25 22:00 06/21/25 23:24 6.25 MG Diagnostic Test (Pha) 1 strip ACHS 06/21/25 22:00 06/21/25 22:15 1 STRIP Enoxaparin Sodium 100 mg ONCE ONCE SC 06/21/25 17:30 06/21/25 17:31 DC 06/21/25 18:10 100 MG Furosemide 40 mg ONCE ONCE IV 06/21/25 18:45 06/21/25 19:07 DC 06/21/25 18:45 40 MG Ticagrelor 90 mg BID PO 06/21/25 22:00 06/21/25 23:23 90 MG Assessment/Plan Assessment/Plan Assessment Acute on chronic respiratory failure Acute on chronic renal failure CHF Elevated troponin, downtrending Diabetes mellitus Hypertension Obesity Plan Admit the patient to telemetry to the hospitalist Echocardiogram pending Nephrology consult Cardiology consultation Resume home medications Continue treatment per orders. Plan discussed with: Patient My Orders Orders - EVARISTO DALEY AGACNP Procedure Category Date Status Time Furosemide Injection PHA 06/22/25 In Process (Lasix Injection) 10:00 Albuterol Medneb PHA 06/21/25 In Process (Ventolin Medneb) 18:45 Aspirin Tablet PHA 06/22/25 In Process 10:00 Atorvastatin (Lipitor) PHA 06/21/25 In Process 22:00 Ticagrelor (Brilinta) PHA 06/21/25 In Process 22:00 Carvedilol Tablet PHA 06/21/25 In Process (Coreg Tablet) 22:00 *[facility] CONS 06/21/25 Transmitted -[place] 18:45 Basic Metabolic Panel LAB 06/22/25 Logged 04:00 Glucose Blood PHA 06/21/25 In Process (Accu-Chek Comfort 22:00 Insulin R (Human) PHA 06/21/25 In Process (Insulin R) 22:00 Dextrose 50% Syringe PHA 06/21/25 In Process 18:45 Admit ADMIT 06/21/25 Transmitted 18:45 Renal DIET 06/22/25 Transmitted Standard(2gna,3gk,Lopho) Breakfast Ondansetron Hcl PHA 06/21/25 In Process (Zofran) 18:45 Complete Blood Count LAB 06/22/25 Logged 04:00 Cardiac DIET 06/22/25 Transmitted Diet-2gna,Lofat,Lochol Breakfast Echo 2d Mode Cardiac US 06/21/25 Logged DOP 18:45 Condition: Fair [facility] 06/21/25 In Process 18:45 Acetaminophen Tablet PHA 06/21/25 In Process (Tylenol Tablet) 18:45 Bedrest With Bathroom [facility] 06/21/25 In Process Privileg 18:45 Nitroglycerin PHA 06/21/25 In Process Sublingual (Ntrostat 18:45 Morphine Sulfate PHA 06/21/25 In Process Injection 18:45 Stat Ekg For Chest [facility] 06/21/25 In Process Pain 18:45 Notify Of Changes [facility] 06/21/25 In Process From Base 18:45 Information Technology Intern For [facility] 06/21/25 In Process 24 Hours 18:45 Emergency Dysrhythmia [facility] 06/21/25 In Process Protocol 18:45 Rhythm Strips Once [facility] 06/21/25 In Process Every Shift 18:45 Oxygen By Nasal RT 06/21/25 Transmitted Cannula 18:45 Communication Order ORDERS 06/22/25 Transmitted 04:16 Date of Service: Jun 21, 2025 Billing Provider: EVARISTO DALEY Common Visit Codes: [id number] INP/OBS CARE (HIGH) EVARISTO DALEY AGACNP Jun 22, 2025 04:21
[2025-06-22 05:00] VITALS: BP 148/86; PULSE 66; RESP 20; TEMP 97.8; O2SAT 99
[2025-06-22 06:32] LABS: Hematocrit 29.0 % (41.0-53.0); Hemoglobin 9.6 g/dL (13.5-17.5); Mean Corpuscular Hemoglobin 27.1 pg (28.0-32.0); Mean Corpuscular Volume 82.1 fL (80.0-100.0); Nucleated Red Blood Cells % 0.1 %
[2025-06-22 06:36] LABS: Potassium 4.6 mmol/L (3.5-5.1); Sodium 143 mmol/L (136-145)
[2025-06-22 06:37] LABS: Anion Gap 12 (5-15)
[2025-06-22 06:43] LABS: BUN/Creatinine Ratio 12.2 (10.0-20.0)
[2025-06-22 06:50] LABS: Blood Urea Nitrogen 36 mg/dL (9-23); Calcium 8.6 mg/dL (8.7-10.4); Carbon Dioxide 19 mmol/L (20-31); Chloride 112 mmol/L (98-107); Glucose 73 mg/dL (74-106)
[2025-06-22 09:00] VITALS: BP 160/93; PULSE 71; RESP 20; TEMP 97.1; O2SAT 94
[2025-06-22] MEDS: FUROSEMIDE 40 MG/4 ML VIAL IV SCH (10:16)
--- NOTE | 2025-06-22 12:36 | DVHSR ---
APPROVED REPORT EXAM: Two-dimensional and M-mode echocardiogram with Doppler and color Doppler. Blood Pressure: 148/86 mmHg INDICATION EF RISK FACTORS Obesity: Height: 5'9", Weight: 246 DIMENSIONS LVDd5.2 (3.8-5.7cm)LA (2D)4.2 (1.9-4.0cm)Aortic Root3.4 (2.0-3.7cm) LVDs3.9 (2.5-4.0cm)LA (MM) (1.9-4.0cm)Aortic Cusp Exc1.8 (1.5-2.0cm) EF (%) 50.0 (55-70%)Rt. Atrium4.1 (1.9-4.0cm)Asc. Aorta cm IVSd1.3 (0.7-1.1cm)RV (D) (1.8-2.4cm) PWd1.3 (0.7-1.1cm) Mitral Valve MitralMitral Stenosis E wave1.23m/sMV Mean GR.mmHg A wave0.78m/sMV Peak GR.mmHg E/A ratio1.62D MVAcm2 DECEL [id number] 1/2 Timems Aortic Valve Aortic ValveAortic Stenosis V10.87m/Marciano Mean GR.5mmHg V21.50m/Marciano Peak GR.9mmHg LVOT Diameter2.0 (1.8-2.4cm)Doppler AVA1.82cm2 AI P 1/2 Wcgo814.54ms Pulmonic Valve V20.84m/s Tricuspid Valve TR Velocity3.13m/s [id number] Other Information Technically limited study due to body habitus. Conclusion lvef 50% mild LVH aortic sclerosis mild aortic regurg left atrium enlarged mild to moderate mitral regurg
[2025-06-22 13:24] VITALS: BP 164/77; PULSE 70; RESP 20; TEMP 98.2; O2SAT 99
--- NOTE | 2025-06-22 13:29 | DVHINCON2 ---
Date of service: Jun 22, 2025 History of Present Illness 64 yo M with hx of cad s/p multiple pcis, htn , hl admited for sob. pt had trops are -. pt had ecg showing SR septal infarct. pt had LHC with me 2021 shwoing critical MVD and pt tx to [facility] and had 1 stent placed. Past Medical History reviwed Family History: CKD (chronic kidney disease) G8 FATHER Diabetes mellitus G8 MOTHER G8 FATHER Allergies: Coded Allergies: NO KNOWN ALLERGIES (Unverified , 11/11/21) Home Meds Active Scripts Metoprolol Tartrate (Lopressor) 25 Mg Tb, 0.5 TAB PO BID, #30 Prov:DAELITA TORREZ 11/16/21 Lisinopril (Lisinopril) 5 Mg Tab, 1 TAB PO DAILY, #30 Prov:ADELITA TORREZ 11/16/21 Reported Medications Aspirin (Aspir-Low) 81 Mg Tab, 81 MG PO DAILY for 30 Days, MG 11/16/21 Atorvastatin Calcium (ATORVASTATIN CALCIUM) 80 Mg Tab, 1 TAB PO DAILY 11/16/21 Discontinued Reported Medications Ticagrelor Base (BRILINTA) 90 Mg Tab, 1 TAB PO BID 11/12/21 Current Medications Current Medications Medications (Trade) Dose Ordered Sig/Bibiana Route PRN Reason Start Time Stop Time Status Last Admin Furosemide (Lasix Injection) 40 mg DAILY IV 06/22/25 10:00 06/22/25 10:16 Albuterol (Ventolin Medneb) 2.5 mg Q6HPRN PRN NEB SHORTNESS OF BREATH 06/21/25 18:45 06/21/25 19:12 Aspirin 162 mg DAILY PO 06/22/25 10:00 06/22/25 10:15 Atorvastatin Calcium (Lipitor) 80 mg HS PO 06/21/25 22:00 06/21/25 23:24 Ticagrelor (Brilinta) 90 mg BID PO 06/21/25 22:00 06/22/25 10:15 Carvedilol (Coreg Tablet) 6.25 mg Q12HR PO 06/21/25 22:00 06/22/25 10:16 Diagnostic Test (Pha) (Accu-Chek Comfort Curve T) 1 strip ACHS 06/21/25 22:00 06/22/25 05:56 Insulin Human Regular (InsuLIN R) ACHS SC 06/21/25 22:00 Dextrose 50 ml UD PRN IV Blood Sugar LESS THAN 60 06/21/25 18:45 Ondansetron HCl (Zofran) 4 mg Q4HP PRN IV NAUSEA / VOMITING 06/21/25 18:45 Acetaminophen (Tylenol Tablet) 650 mg Q6HP PRN PO PAIN SCALE 1-3 OR TEMP>100.4 06/21/25 18:45 Nitroglycerin (Ntrostat Sublingual) 0.4 mg Q5MINP PRN SL FOR CHEST PAIN 06/21/25 18:45 Morphine Sulfate 2 mg Q30M PRN IV FOR CHEST PAIN 06/21/25 18:45 Review of Systems 10 pt ros otherwise negative Vital Signs Vital Signs Date Time Temp Pulse Resp B/P (MAP) Pulse Ox O2 Delivery O2 Flow Rate FiO2 06/22/25 10:16 71 160/93 06/22/25 09:00 97.1 20 94 97.1 06/21/25 20:14 Nasal Cannula* 4 36 Physical Exam nad s1 s2 rrr ctab soft nt/nd no edema Labs/Diagnostic Data Labs Test 06/22/25 05:56 06/22/25 05:18 06/21/25 17:54 06/21/25 14:37 Range/Units POC Glucose 86 70-106 mg/dl White Blood Count 6.8 4.4-10.8 10^3/uL Red Blood Count 3.54 L 4.5-5.90 10^6/uL Hemoglobin 9.6 L 13.5-17.5 g/dL Hematocrit 29.0 L 41.0-53.0 % Mean Corpuscular Volume 82.1 80.0-100.0 fL Mean Corpuscular Hemoglobin 27.1 L 28.0-32.0 pg Mean Corpuscular Hemoglobin Concent 33.0 32.0-36.0 g/dL Red Cell Distribution Width 16.1 H 11.8-14.3 % Platelet Count 186 140-450 10^3/uL Mean Platelet Volume 8.6 6.9-10.8 fL Neutrophils (%) (Auto) 79.1 37.0-80.0 % Lymphocytes (%) (Auto) 10.8 10.0-50.0 % Monocytes (%) (Auto) 7.0 0.0-12.0 % Eosinophils (%) (Auto) 2.4 0.0-7.0 % Basophils (%) (Auto) 0.7 0.0-2.0 % Neutrophils # (Auto) 5.4 1.6-8.6 10 ^3/uL Lymphocytes # (Auto) 0.7 0.4-5.4 10 ^3/uL Monocytes # (Auto) 0.5 0-1.3 10 ^3/uL Eosinophils # (Auto) 0.2 0-0.8 10 ^3/uL Basophils # (Auto) 0 0-0.2 10 ^3/uL Nucleated Red Blood Cells 0.1 % D-Dimer, Quantitative 0.97 H 0.0-0.49 mg/L FEU Sodium Level 143 136-145 mmol/L Potassium Level 4.6 3.5-5.1 mmol/L Chloride Level 112 H 98-107 mmol/L Carbon Dioxide Level 19 L 20-31 mmol/L Anion Gap 12 5-15 Blood Urea Nitrogen 36 H 9-23 mg/dL Creatinine 2.96 H 0.700-1.30 mg/dL Glomerular Filtration Rate Calc 23 >90 mL/min BUN/Creatinine Ratio 12.2 10.0-20.0 Serum Glucose 73 L 74-106 mg/dL Calcium Level 8.6 L 8.7-10.4 mg/dL Troponin I High Sensitivity 99 *H </=54 ng/L B-Type Natriuretic Peptide 648.49 0-100 pg/mL Test 06/21/25 00:00 Range/Units Urine Color Light-yellow Yellow Urine Clarity Clear Clear Urine pH 6.0 5.0-9.0 Urine Specific [place] 1.016 1.001-1.035 Urine Protein 2+ H Negative Urine Ketones Negative Negative Urine Blood 1+ H Negative /uL Urine Nitrite Negative Negative Urine Bilirubin Negative Negative Urine Urobilinogen Normal Negative mg/dL Urine Leukocyte Esterase Negative Negative /uL Urine RBC 2 0 - 3 /hpf Urine Microscopic WBC 1 0-3 /HPF Urine Squamous Epithelial Cells Few <5 /hpf Urine Bacteria None seen None Seen /hpf Urine Glucose 1+ H Normal mg/dL Assessment r/o ACS cad sp pci htn hl ckd obesity Plan/Recommendation ER precautions given by dr grossman , gfr 23, creat of 3 cont asa pt off brilinta as per his tamez cards, its been 3 years since pci indepently reviewed previous cath images recommend statin and HF meds pt insists to go to [facility] today for use of cord blood injecdtion for ckd no sob outpt fu Plan discussed with: Patient ELIZABETH MARINO MD Jun 22, 2025 13:29
--- NOTE | 2025-06-22 13:44 | DVHDS2 ---
Discharge Summary Date of Admission Jun 21, 2025 at 18:45 Date of Discharge: Jun 22, 2025 Labs/Diagnostic Data: Laboratory Results Test 06/22/25 05:56 06/22/25 05:18 06/21/25 17:54 06/21/25 14:37 POC Glucose 86 mg/dl (70-106) White Blood Count 6.8 10^3/uL (4.4-10.8) Red Blood Count 3.54 10^6/uL (4.5-5.90) Hemoglobin 9.6 g/dL (13.5-17.5) Hematocrit 29.0 % (41.0-53.0) Mean Corpuscular Volume 82.1 fL (80.0-100.0) Mean Corpuscular Hemoglobin 27.1 pg (28.0-32.0) Mean Corpuscular Hemoglobin Concent 33.0 g/dL (32.0-36.0) Red Cell Distribution Width 16.1 % (11.8-14.3) Platelet Count 186 10^3/uL (140-450) Mean Platelet Volume 8.6 fL (6.9-10.8) Neutrophils (%) (Auto) 79.1 % (37.0-80.0) Lymphocytes (%) (Auto) 10.8 % (10.0-50.0) Monocytes (%) (Auto) 7.0 % (0.0-12.0) Eosinophils (%) (Auto) 2.4 % (0.0-7.0) Basophils (%) (Auto) 0.7 % (0.0-2.0) Neutrophils # (Auto) 5.4 10 ^3/uL (1.6-8.6) Lymphocytes # (Auto) 0.7 10 ^3/uL (0.4-5.4) Monocytes # (Auto) 0.5 10 ^3/uL (0-1.3) Eosinophils # (Auto) 0.2 10 ^3/uL (0-0.8) Basophils # (Auto) 0 10 ^3/uL (0-0.2) Nucleated Red Blood Cells 0.1 % D-Dimer, Quantitative 0.97 mg/L FEU (0.0-0.49) Sodium Level 143 mmol/L (136-145) Potassium Level 4.6 mmol/L (3.5-5.1) Chloride Level 112 mmol/L (98-107) Carbon Dioxide Level 19 mmol/L (20-31) Anion Gap 12 (5-15) Blood Urea Nitrogen 36 mg/dL (9-23) Creatinine 2.96 mg/dL (0.700-1.30) Glomerular Filtration Rate Calc 23 mL/min (>90) BUN/Creatinine Ratio 12.2 (10.0-20.0) Serum Glucose 73 mg/dL (74-106) Calcium Level 8.6 mg/dL (8.7-10.4) Troponin I High Sensitivity 99 ng/L (</=54) B-Type Natriuretic Peptide 648.49 pg/mL (0-100) Test 06/21/25 00:00 Urine Color Light-yellow (Yellow) Urine Clarity Clear (Clear) Urine pH 6.0 (5.0-9.0) Urine Specific [place] 1.016 (1.001-1.035) Urine Protein 2+ (Negative) Urine Ketones Negative (Negative) Urine Blood 1+ /uL (Negative) Urine Nitrite Negative (Negative) Urine Bilirubin Negative (Negative) Urine Urobilinogen Normal mg/dL (Negative) Urine Leukocyte Esterase Negative /uL (Negative) Urine RBC 2 /hpf (0 - 3) Urine Microscopic WBC 1 /HPF (0-3) Urine Squamous Epithelial Cells Few /hpf (<5) Urine Bacteria None seen /hpf (None Seen) Urine Glucose 1+ mg/dL (Normal) Other Laboratory Tests 06/22/25 05:18 Brief Hx & Hospital Course: 64-year-old male with a known history of triple-vessel disease status post PCI with a multiple stents last stent to three years ago at [facility] [place], currently off of Brilinta, presented to the hospital with shortness of breaths on exertion found to have acute hypoxic respiratory failure secondary to acute CHF exacerbation with a possible systolic and diastolic dysfunction. Patient has had a mildly elevated troponin which was thought secondary to decreased renal clearance because of underlying CKD. Patient was seen by Dr. Hawkins and cleared to be discharged as patient is requesting only medical management. Patient's diabetes mellitus is diet controlled. Patient is requesting to go home as he has to go to [facility] for a stem cell called procedure as you already paid good amount of money for this procedure which is scheduled at 3:00 a.m. in [place]. Patient was recommended to come back to ER if there is any increasing shortness a breath passing out spell or any concern. Condition at Discharge: Stable Final Diagnosis/Problems List 1.Acute congestive heart failure exacerbation suspected systolic dysfunction currently compensated , patient is currently on room air with a saturation more than 92% 2. Severe triple-vessel disease status post PCI with five stents , last stent about two three years ago at [facility]. Currently off of Brilinta 3. CKD stage 4 4. Diabetes mellitus type 2 diet controlled 5. Hypertension 6. Morbid obesity classII Discharge Disposition: Home SNF Discharge Will this Physician continue t: No Discharge Instruct/Medications Diet: Cardiac 2g Na,low cholest Activity: No Restrictions, As Tolerated Follow Up/Referral: f/u with PCP and cardiology in 1-2 weeks Medications: resume meds Scheduled Aspirin (Aspir-Low), 81 MG PO DAILY, (Reported) Atorvastatin Calcium (Atorvastatin Calcium), 1 TAB PO DAILY, (Reported) Lisinopril (Lisinopril), 1 TAB PO DAILY Metoprolol Tartrate (Lopressor), 0.5 TAB PO BID Discontinued Medications Ticagrelor Base (Brilinta), 1 TAB PO BID, (Reported) Discharge Statement: "Patient was advised to return to the ER or call 911 if any headaches, dizziness, shortness of breath, chest pain, abdominal pain, bleeding, fevers, or worsening of medical condition. Patient was counseled about treatment plan, medications, possible side effects, patientverbalized understanding. All questions were answered to the best of my ability. This discharge took greater then 30 minutes in planning, reviewing documentation, counseling the patient, and discussing with other team members." ASSESSMENT ASSESSMENT Assessment 1.Acute congestive heart failure exacerbation suspected systolic dysfunction currently compensated , patient is currently on room air with a saturation more than 92% 2. Severe triple-vessel disease status post PCI with five stents , last stent about two three years ago at [facility] [place]. Currently off of Brilinta 3. CKD stage 4 4. Diabetes mellitus type 2 diet controlled 5. Hypertension 6. Morbid obesity classII Date of Service: Jun 22, 2025 Billing Provider: RULA FISH MD Common Visit Codes: NOT BILLABLE RULA FISH MD Jun 22, 2025 13:44
--- NOTE | 2025-06-22 14:44 | DVHINCON2 ---
Date of service: Jun 22, 2025 Referring Physician Nabeel Monzon NP Reason for Consultation CALI History of Present Illness Schuyler Doyle is a 64-year-old male with known history of diabetes, obesity presents for further evaluation and management of several-day history of progressive shortness of breath. He is seen in his room earlier today, he was putting on his clothes and states that he will be discharged. Patient's and family entered the room during my evaluation. He does know that he has a history of underlying kidney insufficiency. 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 His primary care physician is Dr. Michael Delarosa. He has been treated with IV diuretics with reported improvement in his symptoms of shortness of breath. Past Medical History Hypertension Diabetes Coronary artery disease Dyslipidemia Obesity Allergies: Coded Allergies: NO KNOWN ALLERGIES (Unverified , 11/11/21) Home Meds Active Scripts Metoprolol Tartrate (Lopressor) 25 Mg Tb, 0.5 TAB PO BID, #30 Prov:ADELITA TORREZ 11/16/21 Lisinopril (Lisinopril) 5 Mg Tab, 1 TAB PO DAILY, #30 Prov:ADELITA TORREZ 11/16/21 Reported Medications Aspirin (Aspir-Low) 81 Mg Tab, 81 MG PO DAILY for 30 Days, MG 11/16/21 Atorvastatin Calcium (ATORVASTATIN CALCIUM) 80 Mg Tab, 1 TAB PO DAILY 11/16/21 Discontinued Reported Medications Ticagrelor Base (BRILINTA) 90 Mg Tab, 1 TAB PO BID 11/12/21 Current Medications Current Medications Medications (Trade) Dose Ordered Sig/Bibiana Route PRN Reason Start Time Stop Time Status Last Admin Furosemide (Lasix Injection) 40 mg DAILY IV 06/22/25 10:00 06/22/25 10:16 Albuterol (Ventolin Medneb) 2.5 mg Q6HPRN PRN NEB SHORTNESS OF BREATH 06/21/25 18:45 06/21/25 19:12 Aspirin 162 mg DAILY PO 06/22/25 10:00 06/22/25 10:15 Atorvastatin Calcium (Lipitor) 80 mg HS PO 06/21/25 22:00 06/21/25 23:24 Ticagrelor (Brilinta) 90 mg BID PO 06/21/25 22:00 06/22/25 10:15 Carvedilol (Coreg Tablet) 6.25 mg Q12HR PO 06/21/25 22:00 06/22/25 10:16 Diagnostic Test (Pha) (Accu-Chek Comfort Curve T) 1 strip ACHS 06/21/25 22:00 06/22/25 05:56 Insulin Human Regular (InsuLIN R) ACHS SC 06/21/25 22:00 Dextrose 50 ml UD PRN IV Blood Sugar LESS THAN 60 06/21/25 18:45 Ondansetron HCl (Zofran) 4 mg Q4HP PRN IV NAUSEA / VOMITING 06/21/25 18:45 Acetaminophen (Tylenol Tablet) 650 mg Q6HP PRN PO PAIN SCALE 1-3 OR TEMP>100.4 06/21/25 18:45 Nitroglycerin (Ntrostat Sublingual) 0.4 mg Q5MINP PRN SL FOR CHEST PAIN 06/21/25 18:45 Morphine Sulfate 2 mg Q30M PRN IV FOR CHEST PAIN 06/21/25 18:45 Family History: CKD (chronic kidney disease) G8 FATHER Diabetes mellitus G8 MOTHER G8 FATHER Review of Systems As per history of present illness otherwise all systems are reviewed and are noncontributory. H&P Exam Vital Signs/I&O Vital Sign Date Time Temp Pulse Resp B/P (MAP) Pulse Ox O2 Delivery O2 Flow Rate FiO2 06/22/25 13:24 98.2 70 20 99 06/22/25 10:16 160/93 06/21/25 20:14 Nasal Cannula* 4 36 Intake and Output 06/21/25 06/22/25 19:00 07:00 Intake Total 480 ml Balance 480 ml Intake Oral 480 ml # Voids 5 Physical Exam Gen: nad heent: nc/at, mmm lungs: cta anteriorly cvs: no rub abd: soft, bowel sounds audible ext: no edema skin: no rash neuro: alert and oriented Labs/Diagnostic Data Labs/Diagnostic Data Laboratory Tests Test 06/22/25 05:56 06/22/25 05:18 06/21/25 22:14 06/21/25 17:54 Range/Units POC Glucose 86 97 70-106 mg/dl White Blood Count 6.8 4.4-10.8 10^3/uL Red Blood Count 3.54 L 4.5-5.90 10^6/uL Hemoglobin 9.6 L 13.5-17.5 g/dL Hematocrit 29.0 L 41.0-53.0 % Mean Corpuscular Volume 82.1 80.0-100.0 fL Mean Corpuscular Hemoglobin 27.1 L 28.0-32.0 pg Mean Corpuscular Hemoglobin Concent 33.0 32.0-36.0 g/dL Red Cell Distribution Width 16.1 H 11.8-14.3 % Platelet Count 186 140-450 10^3/uL Mean Platelet Volume 8.6 6.9-10.8 fL Neutrophils (%) (Auto) 79.1 37.0-80.0 % Lymphocytes (%) (Auto) 10.8 10.0-50.0 % Monocytes (%) (Auto) 7.0 0.0-12.0 % Eosinophils (%) (Auto) 2.4 0.0-7.0 % Basophils (%) (Auto) 0.7 0.0-2.0 % Neutrophils # (Auto) 5.4 1.6-8.6 10 ^3/uL Lymphocytes # (Auto) 0.7 0.4-5.4 10 ^3/uL Monocytes # (Auto) 0.5 0-1.3 10 ^3/uL Eosinophils # (Auto) 0.2 0-0.8 10 ^3/uL Basophils # (Auto) 0 0-0.2 10 ^3/uL Nucleated Red Blood Cells 0.1 % D-Dimer, Quantitative 0.97 H 0.0-0.49 mg/L FEU Sodium Level 143 136-145 mmol/L Potassium Level 4.6 3.5-5.1 mmol/L Chloride Level 112 H 98-107 mmol/L Carbon Dioxide Level 19 L 20-31 mmol/L Anion Gap 12 5-15 Blood Urea Nitrogen 36 H 9-23 mg/dL Creatinine 2.96 H 0.700-1.30 mg/dL Glomerular Filtration Rate Calc 23 >90 mL/min BUN/Creatinine Ratio 12.2 10.0-20.0 Serum Glucose 73 L 74-106 mg/dL Calcium Level 8.6 L 8.7-10.4 mg/dL Troponin I High Sensitivity 99 *H </=54 ng/L Test 06/21/25 15:35 06/21/25 14:37 06/21/25 00:00 Range/Units Troponin I High Sensitivity 95 *H 96 *H </=54 ng/L White Blood Count 7.2 4.4-10.8 10^3/uL Red Blood Count 3.43 L 4.5-5.90 10^6/uL Hemoglobin 9.1 L 13.5-17.5 g/dL Hematocrit 27.7 L 41.0-53.0 % Mean Corpuscular Volume 80.7 80.0-100.0 fL Mean Corpuscular Hemoglobin 26.5 L 28.0-32.0 pg Mean Corpuscular Hemoglobin Concent 32.8 32.0-36.0 g/dL Red Cell Distribution Width 15.4 H 11.8-14.3 % Platelet Count 205 140-450 10^3/uL Mean Platelet Volume 8.6 6.9-10.8 fL Neutrophils (%) (Auto) 78.2 37.0-80.0 % Lymphocytes (%) (Auto) 11.3 10.0-50.0 % Monocytes (%) (Auto) 7.4 0.0-12.0 % Eosinophils (%) (Auto) 2.1 0.0-7.0 % Basophils (%) (Auto) 1.0 0.0-2.0 % Neutrophils # (Auto) 5.6 1.6-8.6 10 ^3/uL Lymphocytes # (Auto) 0.8 0.4-5.4 10 ^3/uL Monocytes # (Auto) 0.5 0-1.3 10 ^3/uL Eosinophils # (Auto) 0.2 0-0.8 10 ^3/uL Basophils # (Auto) 0.1 0-0.2 10 ^3/uL Nucleated Red Blood Cells 0.0 % Sodium Level 143 136-145 mmol/L Potassium Level 5.1 3.5-5.1 mmol/L Chloride Level 113 H 98-107 mmol/L Carbon Dioxide Level 21 20-31 mmol/L Anion Gap 9 5-15 Blood Urea Nitrogen 43 H 9-23 mg/dL Creatinine 3.07 H 0.700-1.30 mg/dL Glomerular Filtration Rate Calc 22 >90 mL/min BUN/Creatinine Ratio 14.0 10.0-20.0 Serum Glucose 82 74-106 mg/dL Calcium Level 8.4 L 8.7-10.4 mg/dL B-Type Natriuretic Peptide 648.49 0-100 pg/mL Urine Color Light-yellow Yellow Urine Clarity Clear Clear Urine pH 6.0 5.0-9.0 Urine Specific [place] 1.016 1.001-1.035 Urine Protein 2+ H Negative Urine Ketones Negative Negative Urine Blood 1+ H Negative /uL Urine Nitrite Negative Negative Urine Bilirubin Negative Negative Urine Urobilinogen Normal Negative mg/dL Urine Leukocyte Esterase Negative Negative /uL Urine RBC 2 0 - 3 /hpf Urine Microscopic WBC 1 0-3 /HPF Urine Squamous Epithelial Cells Few <5 /hpf Urine Bacteria None seen None Seen /hpf Urine Glucose 1+ H Normal mg/dL Assessment IMP: 1) Hemodynamically mediated CALI/VMN 2) CKD stage IIIB 3) acute on chronic systolic heart failure 4) coronary artery disease 5) diabetes REC: - I discussed with Schuyler regarding establishing local nephrology care. - we discussed continued avoidance of NSAIDs. - we discussed importance of limiting dietary sodium intake. - he states that he will follow up at our office in two weeks' time. Thank you for the consultation. Plan discussed with: Patient, Spouse ROXANNA PRUITT MD Jun 22, 2025 14:44
--- NOTE | 2025-06-23 17:04 | DVHPN2 ---
Subjective I am assuming the care of the patient from today onwards as per [facility] case sealer. Patient denies any chest pain shortness of breaths. Changes from previous H/P or p: No Changes Objective Vitals Vital Signs Date Time Temp Pulse Resp B/P (MAP) Pulse Ox O2 Delivery O2 Flow Rate FiO2 06/22/25 13:24 98.2 70 20 99 06/22/25 10:16 160/93 06/21/25 20:14 Nasal Cannula* 4 36 Intake/Output Intake and Output 06/23/25 07:00 Intake Total 75 ml Balance 75 ml Intake Oral 75 ml Laboratory Results Laboratory Tests 06/22/25 05:18 Urinalysis Test 06/21/25 00:00 Urine Color Light-yellow (Yellow) Urine Clarity Clear (Clear) Urine pH 6.0 (5.0-9.0) Urine Specific [place] 1.016 (1.001-1.035) Urine Protein 2+ (Negative) H Urine Ketones Negative (Negative) Urine Blood 1+ /uL (Negative) H Urine Nitrite Negative (Negative) Urine Bilirubin Negative (Negative) Urine Urobilinogen Normal mg/dL (Negative) Urine Leukocyte Esterase Negative /uL (Negative) Urine RBC 2 /hpf (0 - 3) Urine Microscopic WBC 1 /HPF (0-3) Urine Squamous Epithelial Cells Few /hpf (<5) Urine Bacteria None seen /hpf (None Seen) Urine Glucose 1+ mg/dL (Normal) H Assessment/Plan Assessment/Plan 1.Acute congestive heart failure exacerbation suspected systolic dysfunction currently compensated , patient is currently on room air with a saturation more than 92% 2. Severe triple-vessel disease status post PCI with five stents , last stent about two three years ago at [place]. Currently off of Brilinta 3. CKD stage 4 4. Diabetes mellitus type 2 diet controlled 5. Hypertension 6. Morbid obesity classII -continue IV Lasix, 2D echo cardiology consultation. Plan discussed with: Other Date of Service: Jun 21, 2025 Billing Provider: RULA FISH MD Common Visit Codes: NOT BILLABLE RULA FISH MD Jun 23, 2025 17:04
== END 2025-06-22 13:20 | disposition left against medical advice (07) | DRG 291 ==
LOC: ER 12:57 → OVERFLOW 18:45 → TELE-WESTW 22:58
PROVIDERS: ADMIT Nurse Practitioner; ATTEND Nurse Practitioner
DX: I13.0 Hypertensive heart and chronic kidney disease with heart failure and stage 1 through stage 4 chronic kidney disease, or unspecified chronic kidney disease (principal); I50.43 Acute on chronic combined systolic (congestive) and diastolic (congestive) heart failure; J96.21 Acute and chronic respiratory failure with hypoxia; N17.0 Acute kidney failure with tubular necrosis; N18.4 Chronic kidney disease, stage 4 (severe); I24.89 Other forms of acute ischemic heart disease; Z53.29 Procedure and treatment not carried out because of patient's decision for other reasons; E11.22 Type 2 diabetes mellitus with diabetic chronic kidney disease; E66.01 Morbid (severe) obesity due to excess calories; I25.10 Atherosclerotic heart disease of native coronary artery without angina pectoris; E78.5 Hyperlipidemia, unspecified; Z98.61 Coronary angioplasty status; Z95.1 Presence of aortocoronary bypass graft; Z79.82 Long term (current) use of aspirin; Z87.442 Personal history of urinary calculi; Z83.3 Family history of diabetes mellitus; Z68.36 Body mass index [BMI] 36.0-36.9, adult
CPT/HCPCS: 36415; 71045; 80048; 81001; 82962; 83880; 84484; 85025; 85379; 93005; 93306; 94640; 96372; 96374; 99291; G0378